=== PATIENT | female | born 1985 | race Caucasian/White ===

== ENCOUNTER → 2017-06-07 | Outpatient (CLI) | payer BC | END | disposition home or self-care (01) | LOC: C.PAPS 15:56 | PROVIDERS: ATTEND Physician Assistant | DX: Z01.419 Encounter for gynecological examination (general) (routine) without abnormal findings (principal); Z11.51 Encounter for screening for human papillomavirus (HPV) ==

== ENCOUNTER → 2017-06-15 | Outpatient (CLI) | payer BC ==
--- NOTE | 2017-06-15 14:02 | MAMMOGRAPHY REPORT ---
UNILATERAL LEFT DIGITAL DIAGNOSTIC MAMMOGRAM TOMOSYNTHESIS WITH CAD AND TARGETED LEFT ULTRASOUND: 06/15 CLINICAL HISTORY: The patient reports a palpable left breast lump since May, which fluctuates in size. She denies any associated pain, skin erythema, or other complaints. TECHNIQUE: Breast tomosynthesis in addition to standard 2D mammography was performed. Current study was also evaluated with a Computer Aided Detection (CAD) system. Left CC and MLO 2-D and tomosynthes is images were obtained. COMPARISON: No prior exams were available for comparison. BREAST COMPOSITION: The tissue of the left breast is extremely dense, which lowers the sensitivity o f mammography. FINDINGS: A triangle marker enamorado the site of the palpable lump in the left upper outer quadrant. A t the site of the palpable lump there is an ovoid asymmetry with partially circumscribed margins akil uring approximately 4.3 cm seen on the MLO view only. The asymmetry is of mixed density including fa t density. The remainder of the left breast is negative, without suspicious masses, calcifications, or areas of architectural distortion noted. Targeted ultrasound was performed of the area of the palpable lump pointed out by the patient, in the left breast at approximately 1:00, 7 cm from the nipple. At the site of the palpable lump there is an ovoid area of hyperechoic tissue with intervening normal appearing ducts which measures approximat vipul 3.8 x 1.8 cm. This corresponds with the asymmetry and either represents a normal island of fibro glandular tissue or potentially a benign fibroadenolipoma. Given the discrete palpable nature, ultra sound guided core needle biopsy is recommended for further evaluation. IMPRESSION: ACR BI-RADS CATEGORY 4: SUSPICIOUS, TARGETED ULTRASOUND ACR BI-RADS CATEGORY 4: SUSPICIO US At the site of the palpable lump in the left 1:00 breast, there is an ovoid 4.3 cm fat-containing asy mmetry mammographically with corresponding hyperechoic tissue on ultrasound. The finding has benign imaging features and likely represents an island of normal fibroglandular tissue versus a benign fibr oadenolipoma (hamartoma). Recommend ultrasound-guided core needle biopsy for further evaluation. A phone call was made to the physician's office to confirm faxed results were received. The patient has been verbally notified of the results. She tentatively scheduled the biopsy over the telephone o n 06/15/2017. Approximately 10% of breast cancers are not detected with mammography. A negative mammographic report should not delay biopsy if a clinically suggestive mass is present. Hamida Esparza M.D. ah/:06/15/2017 11:44:18 Checker/Stocker: Tomasa Rabago RT(R)(M), [facility] letter sent: Abnormal 4/5 BI-RADS Code: ACR BI-RADS Category 4: Suspicious Ultrasound BI-RADS: ACR BI-RADS Category 4: Suspici ous
== END | disposition home or self-care (01) ==
LOC: C.MAMM 10:28
PROVIDERS: ATTEND Physician Assistant
DX: N63.21 Unspecified lump in the left breast, upper outer quadrant (principal)

== ENCOUNTER → 2017-06-24 | Outpatient (CLI) | payer BC ==
--- NOTE | 2017-06-24 10:50 | Discharge Instructions ---
Discharge Instructions Procedure Procedure Date: Jun 24, 2017. Reason for visit: Left Lump. Discharge Discharge Date: Jun 24, 2017. Discharge Diagnosis: status post breast biopsy Instructions Activity Recommendations: Additional Limitations (see below) Return to School/Work: no limitations Recommended Home Diet: No Limitations Provider Instructions: ACTIVITY RECOMMENDATIONS: * No lifting, pushing, pulling or exercising the affected side for three days. RETURN TO SCHOOL/WORK: * You may return to work/school after the procedure, but do not perform any strenuous activities for 24 to 48 hours. MEDICATIONS: * Tylenol (two 325 mg) every four to six hours if needed for mild pain (if not allergic to Tylenol). DIET: * Resume previous diet. SPECIAL CARE INSTRUCTIONS: * Keep biopsy site dry for 24 hours. May shower after 24 hours, but do not soak (bathe) incision. * May remove Tegaderm (plastic patch) tomorrow AFTER showering. * Leave the steri-strips on for one week. Allow the steri-strips to fall off by themselves. If not off after one week, you may remove them. You may place a Bandaid crosswise over the strips, if desired. * Apply ice 10 minutes on and 10 minutes off as needed. * Wear a bra at bedtime to sleep more comfortably for 2-3 days. * Your referring physician should have the results after approximately 5 to 7 business days. * Call for unusual bleeding, fever, drainage, etc or if you have any questions call during normal business hours or after hours call Dr Esparza, [phone]. FOLLOW UP VISIT: Follow-up with Referring Physician as scheduled. [facility] [place] Recommendations: Call your doctor if: * Temperature above 101 degrees * Pain not relieved by pain medicine ordered * There is increased drainage or redness from any incision * You have any unanswered questions or concerns. Your Doctors Instructions noted above were prepared by provider Hamida Esparza. Patient Signature Section: Patient Instructions Signature Page Arti Rodriguez Patient (or Guardian) Signature/Date: I have read and understand the instructions given to me by my caregivers. Caregiver/RN/Doctor Signature/Date: The above-named patient and/or guardian has received patient instructions on this date. + Original Patient Signature Page (only) stays with chart. Please make copy for patient.
--- NOTE | 2017-06-24 14:59 | MAMMOGRAPHY REPORT ---
ULTRASOUND GUIDED BIOPSY LEFT BREAST: 06/24/2017 CLINICAL HISTORY: Hyperechoic tissue in the left 1:00 breast, which is palpable and felt to correspon d with a mammographic asymmetry. PATIENT CONSENT: The procedure, risks and benefits were discussed with the patient and informed writt en consent was obtained. A timeout was performed immediately prior to the procedure. PROCEDURE DESCRIPTION: With ultrasound guidance, aseptic technique, and lidocaine as the local anesth etic (1% lidocaine to anesthetize the skin and 1% lidocaine with epinephrine to anesthetize the deepe r tissues), the palpable hyperechoic tissue of concern in the left 1:00 breast was sampled 3 times wi th a 14-gauge Achieve biopsy needle. Immediately thereafter, with ultrasound guidance, aseptic techni que, and lidocaine as the local anesthetic, a metallic localizer clip was placed at the biopsy site. Direct pressure was applied to the site immediately post procedure and hemostasis was achieved. Pos tprocedure unilateral mammograms were performed to confirm clip placement; see separate dictation for details. The patient tolerated the procedure without complication. She was given wound care instru ctions. The specimens were sent to pathology for analysis. COMPARISON: Comparison is made to exams dated: 06/15/2017 ultrasound and 06/15/2017 mammogram - [facility] [place]. IMPRESSION: ULTRASOUND GUIDED BIOPSY Ultrasound guided core needle biopsy of the palpable hyperechoic tissue in the left 1:00 breast, with clip placement. The patient will receive pathology results from her referring provider. Hamida Esparza M.D. ah/:06/24/2017 10:52:32 Insurance Processor: Tomasa ANGULO)([place]), [facility]
--- NOTE | 2017-06-24 14:59 | MAMMOGRAPHY REPORT ---
UNILATERAL LEFT DIGITAL DIAGNOSTIC MAMMOGRAM TOMOSYNTHESIS: 06/24/2017 CLINICAL HISTORY: Status post left breast biopsy. TECHNIQUE: Breast tomosynthesis in addition to standard 2D mammography was performed. Postprocedura l left CC and ML tomosynthesis images were obtained. COMPARISON: Comparison is made to exams dated: 06/15/2017 mammogram and 06/15/2017 ultrasound - [facility]. BREAST COMPOSITION: The tissue of the left breast is extremely dense, which lowers the sensitivity o f mammography. FINDINGS: A new biopsy marker clip is seen at the site of the biopsied hyperechoic tissue in the lef t 1:00 breast. The biopsy marker clip is located within the mammographic asymmetry, indicating good correlation between the biopsied sonographic finding as well as the mammographic asymmetry. No signi ficant postbiopsy hematoma is seen. IMPRESSION: POST PROCEDURE IMAGING FOR MARKER PLACEMENT New biopsy marker clip status post left breast biopsy. Pathology results are pending. Approximately 10% of breast cancers are not detected with mammography. A negative mammographic report should not delay biopsy if a clinically suggestive mass is present. Hamida Esparza M.D. ah/:06/24/2017 11:00:21 Molasses Preparer: Tomasa Rabago RT(R)(M), [facility] BI-RADS Code: Post Procedure Imaging For Marker Placement
== END | disposition home or self-care (01) ==
LOC: C.MAMM 10:12
PROVIDERS: ATTEND Physician Assistant
DX: R92.8 Other abnormal and inconclusive findings on diagnostic imaging of breast (principal); N63.10 Unspecified lump in the right breast, unspecified quadrant